=== PATIENT | female | born 1980 | race Caucasian/White ===

== ENCOUNTER 2025-05-24 19:18 | Emergency (ER) | payer OTHER | END 2025-05-24 21:25 | disposition home or self-care (01) | LOC: JP.ED 19:18 | DX: S30.861A Insect bite (nonvenomous) of abdominal wall, initial encounter (principal); Z90.49 Acquired absence of other specified parts of digestive tract; F17.200 Nicotine dependence, unspecified, uncomplicated; W57.XXXA Bitten or stung by nonvenomous insect and other nonvenomous arthropods, initial encounter | CPT/HCPCS: 99281 ==